=== PATIENT | female | born 1975 | race Two or more races ===

== ENCOUNTER 2019-03-18 10:20 | Emergency (ER) | payer SELFPAY ==
[~2019-03-18] VITALS: Ht 165.1 cm; Wt 60.0 kg
[2019-03-18] MEDS ORDERED: LORAZEPAM 1MG TABLET PO ONE (11:00)
[2019-03-18 11:43] VITALS: BP 121/85
== END 2019-03-18 11:43 | disposition home or self-care (01) ==
LOC: ER 10:20
DX: F41.1 Generalized anxiety disorder (principal)
CPT/HCPCS: 99284